=== PATIENT | male | born 1945 | race Caucasian/White ===

== ENCOUNTER 2017-01-19 22:18 | Observation (INO) | payer MEDICARE, OTHER ==
--- NOTE | ~2017-01-19 | HP ---
History And Physical [place] [address] [facility] [place]. [address] NAME: PRANAV SILVA JR : 49 STATUS : ADM Claudia PAT#: [id number] AGE: 71 ADM/REG DATE : 01/20/17 MR#: [id number] REPORT SERV DATE: 01/20/17 DICTATED BY: ROSE MULTANI DATE: 01/20/17 REPORT STATUS : Draft TRANSCRIBED BY: MODL DATE: 01/20/17 DATE OF ADMISSION: 01/20/2017 SENIOR PYTHON DEVELOPER: Dr. Davis. ENDOVASCULAR SPECIALIST: Dr. Tran. SURGEON: Dr. Michael. CHIEF COMPLAINT: Palpitations and atrial flutter. HISTORY OF PRESENT ILLNESS: This is a pleasant 71-year-old white male with a complex history of vascular disease with AAA, status post stent graft repair and subsequent open revision, multiple abdominal mesenteric and iliac aneurysms monitored by Dr. Tran, severely dilated aortic root on echo 10/21/2016 with [id number] AR with last cardiac chest CTA performed on 11/2015 with an aortic root per Dr. Davis's office note ranging in the 5.7 cm range at its max. He is undergoing annual chest CTAs, which last I can determine is to be of then done 11/26/2015. He also has a history of coronary artery disease and he is status post CABG in 2007, but does not appear to be in a left atrial appendage ligation. Last cardiac stents were performed on cath arteriogram on 01/05/2016, with stent to the RCA by SVG. He is also status post thoracic aortic aneurysm repair, hypertension, TIA, and stroke. He does tell me that, he had postop paroxysmal atrial fibrillation in 2007, status post reported RODOLFO cardioversion with no recurrence of atrial arrhythmias and palpitations since. He tells me, "I feel great". He denies any chest pain. He reports that, he walks daily, he does note dyspnea. He has been doing quite well until Tuesday evening, while he was watching television he felt palpitations. He continued to feel palpitation yesterday and checked on his blood pressure cuff heart rate which was 99 to 143. Therefore, he called his meat products demonstrator at the [facility] yesterday and scheduled an appointment with Dr. Davis for this morning at 9 o'clock. However, because he continued to have palpitations and the heart rate was going up, he did present to the emergency department for further evaluation. In the ER, he was determined to be what appears to be in atrial flutter, arrhythmia. He had no other symptoms at that time. He denied again any shortness of breath, chest pain, diaphoresis, edema, or any other symptoms. PAST MEDICAL HISTORY: 1. AAA, abdominal aortic aneurysm, status post stent graft repair and subsequent open revision by Dr. Tran. 2. Abdominal mesenteric and iliac aneurysms, this is followed by Dr. Tran. 3. Postop paroxysmal atrial fibrillation with no recurrence. 4. Coronary artery disease, status post CABG by Dr. Michael on 01/2008 with last cath arteriogram performed last year on 01/05/2016, and he is status post PTCA/stents to the LAD graft along with PTCA/stent to the SVG to RCA, these were with [employer] drug-eluting stents. He denies any chest pain. 5. CVA, requiring tPA by Dr. Curiel in 12/2013. 6. Diabetes mellitus, requiring insulin. 7. Hyperlipidemia. History And Physical [address] [address] NAME: RPANAV SILVA : 49 STATUS : ADM Claudia PAT#: [id number] AGE: 71 ADM/REG DATE : 01/20/17 MR#: [id number] REPORT SERV DATE: 01/20/17 DICTATED BY: ROSE MULTANI DATE: 01/20/17 REPORT STATUS : Draft TRANSCRIBED BY: GENET DATE: 01/20/17 8. Hypertension, that is controlled on atenolol. 9. Obstructive sleep apnea, compliant with CPAP and reports regular followup with his sleep specialist in [place]. 10.Thoracic aortic aneurysm, status post repair 01/2008 with a 29 mm Medtronic freestyle porcine root. Last chest CTA was performed last year as previously reported in my HPI. 11.Khpj-bf-xpwzojpr aortic regurgitation in the setting of severely dilated aortic root per echocardiogram, 10/21/2015. 12.TIA. 13.Tic douloureux, on carbamazepine and with trigeminal neuralgia. SOCIAL HISTORY: He is . He does not currently smoke and has remotely smoked. He denies any alcohol or illicit drug use. He uses a CPAP every night. He walks one mile every day with no symptoms. FAMILY HISTORY: This is noncontributory. REVIEW OF SYSTEMS: As above per HPI, all other systems reviewed and negative. ALLERGIES: MULTIPLE SULFA REACTION, UNABLE TO OBTAIN REACTION: 1. LORAZEPAM STROKE-LIKE SYMPTOMS, INTERACTS WITH TEGRETOL. 2. ADHESIVE, TEARS SKIN OFF. 3. LATEX RASH. 4. MORPHINE, BEHAVIORAL CHANGES. HOME MEDICATIONS: List reviewed and is as follows: 1. Tylenol 325 mg p.o. three times per day as needed for pain. 2. ProAir two puffs inhaled every 4 hours as needed for shortness of breath. 3. Xanax 0.5 mg p.o. daily as needed for anxiety. 4. Norvasc 10 mg p.o. every morning. 5. Aspirin 81 mg p.o. every morning. 6. Atenolol 50 mg p.o. at bedtime. 7. Atorvastatin 80 mg p.o. at bedtime. 8. Symbicort 2 puffs inhaled twice per day as needed for shortness of breath, this is in the 160/4.5 inhaler strength. 9. Tegretol 400 mg p.o. twice per day. 10.Plavix 75 mg p.o. at bedtime. 11.Benadryl 50 mg p.o. three times per day as needed for allergies. 12.Donepezil 5 mg p.o. at bedtime. 13.Ferrous sulfate 325 mg p.o. every morning. 14.Hurst 7.5/325 mg half tab p.o. daily as needed for pain. 15.Insulin sliding scale, this is NovoLog. 16.Lantus 60 units subcu twice per day. 17.Lamictal 20 mg p.o. every morning. 18.Synthroid 112 mcg p.o. before breakfast. 19.Melatonin 10 mg p.o. at bedtime. 20.Metformin 1000 mg p.o. twice per day. History And Physical [address] [address] NAME: PRANAV SILVA SALAS FORTE : 49 STATUS : ADM Claudia PAT#: [id number] AGE: 71 ADM/REG DATE : 01/20/17 MR#: [id number] REPORT SERV DATE: 01/20/17 DICTATED BY: ROSE MULTANI DATE: 01/20/17 REPORT STATUS : Draft TRANSCRIBED BY: GENET DATE: 01/20/17 21.Zoloft 150 mg p.o. every morning. PHYSICAL EXAMINATION: VITAL SIGNS: Oxygen saturation 96% on room air, weight 104.41 kg, temperature 97.7, pulse 82, respiratory rate 16, blood pressure 115/70. GENERAL: Well developed, well nourished. In no apparent distress. HEENT: Head normocephalic. No xanthelasma. Sclera clear, anicteric. Moist mucous membranes without pallor. No lymphadenopathy. No deficits noted. NECK: Trachea midline. Supple. No thyromegaly, JVD, or bruits. RESPIRATORY: Unlabored respirations. Breath sounds clear bilaterally to posterior auscultation except for faint crackles noted in the bilateral bases. No wheezes, rhonchi or crackles. CARDIOVASCULAR: Irregularly irregular. There is a 2/6 AR murmur that is noted. No chest wall tenderness to palpation. Well-healed midline sternotomy scar is noted. ABDOMEN: Soft, nontender, and nondistended. Active bowel sounds auscultated x4 quadrants. No organomegaly and no masses. No aortic bruit. EXTREMITIES: DP/PT and radial pulses 2+ bilaterally. No clubbing, cyanosis, or edema. SKIN: Warm, dry, intact. No rash. Normal turgor. MUSCULOSKELETAL: Moves all extremities in bed without difficulty. NEURO/PSYCH: Alert and oriented x3 with no acute distress. Affect appropriate to current situation. LABORATORY DATA: BMP: Sodium 142, potassium 4.5, creatinine 1.58 (no baseline), glucose 110, calcium 9.4, magnesium 2. CBC: White blood cell count 6.5, hemoglobin 16.1, hematocrit 46.8, platelets of 127 (slightly low, unclear baseline). Troponin less than 0.02 x2. BNP 287.5. TSH 4.840. STUDIES: Chest x-ray, prior CABG with tortuous aorta, no acute processes, otherwise demonstrated radiographically the lungs and pleural spaces are clear. EKGs personally interpreted demonstrates atrial flutter that appears to be typical with a variable block. Telemetry atrial flutter with variable ventricular response rate 70s to 100. ASSESSMENT/PLAN: 1. Atrial flutter on EKG appears to be typical atrial flutter. [id number] equals 5 with age diabetes, history of cerebrovascular accident, and vascular disease. We will continue Eliquis which was started on admission. I will discontinue aspirin and continue Plavix. Note, he did have stents one year ago. We will plan a RODOLFO cardioversion today at 02:[address] Cherry. He does wish to proceed with RODOLFO and cardioversion. I did discuss with him the risks and benefits, and along with his , they wish to agree. This will be performed by Dr. Cherry. Upon successful cardioversion, he will be discharged to home with a 48-hour Holter monitor. This is to be sent on discharge to Dr. Davis. He is to follow up with Dr. Davis in the office in approximately three weeks. Given that, we are starting him on anticoagulant and given that he does have a history of aneurysm with annual cardiac CTAs recommended, we History And Physical [address] [address] NAME: PRANAV SILVA SALAS FORTE : 49 STATUS : ADM Claudia PAT#: [id number] AGE: 71 ADM/REG DATE : 01/20/17 MR#: [id number] REPORT SERV DATE: 01/20/17 DICTATED BY: ROSE MULTANI DATE: 01/20/17 REPORT STATUS : Draft TRANSCRIBED BY: GENET DATE: 01/20/17 will order a CTA here as his last one was performed in 11/2015. 2. Aortic root aneurysm with [id number] aortic regurgitation, this is monitored with annual CTA as previously mentioned, therefore we will order one here. 3. Coronary artery disease, status post CABG and subsequent stents, last 01/05/2016, does not appear to have left atrial appendage ligated on CABG. I will continue his current medications. He is not having any chest pain symptoms. 4. Abdominal aortic aneurysm, status post endograft repair and subsequent open resection, this is noted. 5. Mild renal insufficiency, unclear if this is acute or chronic. He is to follow up with primary care provider for further monitoring and treatment in one week. He is not on any agents that would cause worsening of renal insufficiency. 6. Obstructive sleep apnea. He is compliant with CPAP. The patient was also seen in the Atrial Fibrillation Observation Unit by rounding physician Dr. Kim. He wished to have a 48-hour Holter upon discharge, add Eliquis, and follow up as previously discussed. JUAN MIGUEL/MODL Rose Multani NP / [id number] CC: Ronna Lindsay, MSN, SOLAR ELECTRIC INSTALLER-BC Viola Steen II, M.D. William Warren, M.D.
--- NOTE | ~2017-01-19 | OP ---
Record Of Operation [facility] [address] [place]. [address] NAME: PRANAV SILVA JR : 49 STATUS : ADM Claudia PAT#: [id number] AGE: 71 ADM/REG DATE : 01/20/17 MR#: [id number] REPORT SERV DATE: 01/20/17 DICTATED BY: MICHELE SANTOS DATE: 01/20/17 REPORT STATUS : Draft TRANSCRIBED BY: MODL DATE: 01/20/17 DATE OF PROCEDURE: 01/20/2017 PROCEDURE TYPE: Elective transesophageal echocardiography cardioversion. INDICATION: Atrial flutter. PROCEDURE DESCRIPTION: All questions were answered. An informed consent was obtained. Upon successful sedation per Anesthesia, the transesophageal probe was inserted without complication. Salient echocardiographic windows were obtained, with particular attention to the left atrial appendage. Upon clearance of the appendage, the patient was shocked with 200 joules, synchronized x1. The patient converted from atrial flutter to sinus rhythm without any complication. The patient was recovered by Anesthesia. ECHOCARDIOGRAPHIC FINDINGS: All windows were very technically difficult, therefore only limited clinical information is available from the study. 1. Grossly normal biventricular function. 2. Morphologically normal mitral valve. 3. No evidence of thrombus in the left atrial appendage at the time of the study. Normal Doppler velocities in the left atrial appendage (peak velocity 80 cm/sec). No evidence of left atrial appendage ligation. 4. Color Doppler demonstrates mild MR, and probable moderate AR. Consider correlation with pressure half time, on transthoracic echocardiogram to better great severity of aortic regurgitation. 5. The tricuspid valve, pulmonic valve, and interatrial septum were not well visualized on the study. VR/GENET Michele Santos MD / [id number] CC: Ronna Lindsay, MSN, FORGING OPERATOR-BC
[~2017-01-19 22:18] MED LIST: AMOXIL500 MG PO; ASAB PO; ATEN25 PO; BEN25 PO; DIABETA5 PO; FERROUS SULF325 M1 PO; FISH OIL OTC PO; FISH-EPA1000 MG PO; FLORASTOR250 MG PO; GLIPIZIDE PO; GLUCOPHAGE1000 MG PO; GLUCPH PO; INSNOV7030 SC; LANTUS SC; LEVOTHYROXIN50 MCG PO; LIPITOR10 PO; LIPITOR40 PO; LOPID6 PO; LORTAB 5 PO; LOTE10 PO; NASAREL29 MCG NAS; NORCO1 TA1 PO; NORV10 PO; NOVOLOG SC; P1 PO; PCET PO; PLAVIX PO; PRAVACHOL40 MG PO; PRIN5 PO; PROAIR HFA INH; PROVHFA INH; RISP0.5 PO; RISPERDAL0.25 MG PO; SEROQUEL50 MG PO; SYMBICORT 160/41 INH INH; SYN.025B PO; TEG200 PO; TIROSINT50 MCG PO; TYLENOL 8 HR650 MG PO; VENTOLIN HFA INH; X5 PO; XANAX1 MG PO; ZOCOR80 MG PO; ZOL100 PO
[2017-01-19 22:39] LABS: BASOPHILS 0.5 %; BASOPHILS ABSOLUTE 0.03 10/3/uL (0.0-0.16); EOSINOPHILS 5.5 %; EOSINOPHILS ABSOLUTE 0.36 10/3/uL (0.0-0.53); ER CBC TAT 0 Hrs 05 Mins; HEMATOCRIT 46.8 % (40.0-51.0); HEMOGLOBIN 16.1 g/dL (13.6-17.8); IMMATURE GRANULOCYTES 0.2 %; IMMATURE GRANULOCYTES ABSOLUTE 0.01 10/3/uL (0.0-0.11); LYMPHOCYTES 29.2 %; MANUAL DIFF NO %; MEAN CORPUS HGB CONC 34.4 g/dL (32.0-36.0); MEAN CORPUSCULAR HEMOGLOB 34.6 pg (26.0-34.0); MEAN CORPUSCULAR VOLUME 100.6 fL (80-100); MEAN PLATELET VOLUME 10.4 fL (9.2-13.0); MONOCYTES 9.8 %; MONOCYTES ABSOLUTE 0.64 10/3/uL (0.21-1.20); NEUTROPHILS 54.8 %; NEUTROPHILS ABSOLUTE 3.56 10/3/uL (2.02-8.40); PLATELET COUNT 127 10/3/uL (150-400); RBC DISTRIBUTION WIDTH 13.1 % (12.0-16.0); RED CELL COUNT 4.65 10/6/uL (4.7-6.1); WHITE BLOOD CELLS 6.5 10/3/uL (4.5-10.5)
[2017-01-19 22:47] LABS: INTERNATIONAL NORMAL RATI 1.1 UNITS (-); PARTIAL THROMBO TIME 25.8 SEC (22.5-37.2); PROTIME (NOT ORD) 13.9 SEC (12.0-14.5)
[2017-01-19 22:59] LABS: BUN (BLOOD UREA NITROGEN) 31 MG/DL (6-23); CALCIUM, SERUM 9.4 MG/DL (8.5-10.4); CHEST PAIN PROFILE TAT 0 Hrs 25 Mins; CHLORIDE, SERUM 108 MMOL/L (96-112); CO2 (CARBON DIOXIDE) 27 MMOL/L (24-34); CREATININE 1.58 MG/DL (0.70-1.30); GFR AFRICAN AMERICAN 51 ML/MIN (>=60); GFR NON AFRICAN AMERICAN 44 ML/MIN (>=60); GLUCOSE, SERUM 110 MG/DL (60-99); POTASSIUM, SERUM 4.5 MMOL/L (3.5-5.3); SODIUM, SERUM 142 MMOL/L (135-148); TROPONIN I <0.02 NG/ML (<0.05)
[2017-01-20] MEDS ORDERED: FORTAMET1000 MG PO (02:17)
[2017-01-20] MEDS ORDERED: LAMICTAL200 MG PO (02:17)
[2017-01-20] MEDS ORDERED: ZOL100 PO (02:18)
[2017-01-20] MEDS ORDERED: ATEN50 PO (02:19)
[2017-01-20] MEDS ORDERED: T PO (02:19)
[2017-01-20] MEDS ORDERED: PROAIR HFA INH (02:19)
[2017-01-20] MEDS ORDERED: NORV10 PO (02:19)
[2017-01-20] MEDS ORDERED: LIPITOR80 MG PO (02:19)
[2017-01-20] MEDS ORDERED: SYMBICORT 160/41 INH INH (02:20)
[2017-01-20] MEDS ORDERED: ARICEPT5 PO (02:21)
[2017-01-20] MEDS ORDERED: NORCO1 TA2 PO (02:21)
[2017-01-20] MEDS ORDERED: BEN25 PO (02:21)
[2017-01-20] MEDS ORDERED: PLAVIX PO (02:21)
[2017-01-20] MEDS ORDERED: SYN112 PO (02:22)
[2017-01-20] MEDS ORDERED: TEG200 PO (02:24)
[2017-01-20] MEDS ORDERED: ASAB PO (02:25)
[2017-01-20] MEDS ORDERED: NOVOLOG SC (02:25)
[2017-01-20] MEDS ORDERED: LANTUS SC (02:25)
[2017-01-20] MEDS ORDERED: FERROUS SULF325 M1 PO (02:25)
[2017-01-20] MEDS ORDERED: MELATONIN5 M1 PO (02:26)
[2017-01-20] MEDS ORDERED: X5 PO (02:29)
[2017-01-20 05:43] LABS: ALBUMIN 3.5 G/DL (3.5-5.0); ALKALINE PHOSPHATASE 75 U/L (45-117); FREE T4 0.73 NG/DL (0.76-1.46); SGPT(ALT) 19 U/L (5-65); TOTAL BILIRUBIN 0.2 MG/DL (0-1.2); TOTAL PROTEIN 6.7 G/DL (6.0-8.5); TROPONIN I <0.02 NG/ML (<0.05)
[2017-01-20 05:44] LABS: DIRECT BILIRUBIN < 0.1 MG/DL (0.0-0.4); INDIRECT BILIRUBIN(NOT ORDER) 0.1 MG/DL (0.1-0.9); SGOT(AST) 17 U/L (5-40)
== END 2017-01-20 18:03 | disposition home or self-care (01) ==
LOC: ER 22:18 → CDU1 01-20 01:44 → CDU2 01-20 03:14
PROVIDERS: Clinical Nurse Specialist; Hospitalist
DX: I48.92 Unspecified atrial flutter (principal); I35.1 Nonrheumatic aortic (valve) insufficiency; I10 Essential (primary) hypertension; I71.2 Thoracic aortic aneurysm, without rupture; G47.33 Obstructive sleep apnea (adult) (pediatric); E78.5 Hyperlipidemia, unspecified; E11.9 Type 2 diabetes mellitus without complications; I25.10 Atherosclerotic heart disease of native coronary artery without angina pectoris; I48.0 Paroxysmal atrial fibrillation; F41.9 Anxiety disorder, unspecified; Z88.2 Allergy status to sulfonamides; Z86.73 Personal history of transient ischemic attack (TIA), and cerebral infarction without residual deficits; Z91.040 Latex allergy status; Z87.891 Personal history of nicotine dependence; Z88.5 Allergy status to narcotic agent; Z88.8 Allergy status to other drugs, medicaments and biological substances
CPT/HCPCS: 71020; 71275; 80048; 80076; 82962; 83735; 83880; 84439; 84443; 84484; 85025; 85610; 85730; 92960; 93005; 93225; 93312; 93320; 93325; 96374; 99285; A9270-GY; G0378; Q9967